=== PATIENT | male | born 1960 | race Caucasian/White ===

== ENCOUNTER 2018-09-30 10:19 | Emergency (ER) | payer BC, OTHER ==
[2018-09-30 10:24] VITALS: BP 159/103
[2018-09-30] MEDS ORDERED: CEPHALEXIN 500 MG CAPSULE PO ONE (10:44)
[2018-09-30] MEDS ORDERED: IBUPROFEN 800 MG TABLET PO ONE (10:46)
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
== END 2018-09-30 11:06 | disposition home or self-care (01) ==
LOC: ER 10:19
DX: S00.262A Insect bite (nonvenomous) of left eyelid and periocular area, initial encounter (principal); L03.213 Periorbital cellulitis; W57.XXXA Bitten or stung by nonvenomous insect and other nonvenomous arthropods, initial encounter; F17.200 Nicotine dependence, unspecified, uncomplicated
CPT/HCPCS: 99283

== ENCOUNTER 2018-10-02 07:11 | Emergency (ER) | payer OTHER ==
[2018-10-02] MEDS ORDERED: IBUPROFEN 800 MG TABLET PO ONE (09:19)
--- NOTE | 2018-10-02 09:23 | ER Document Report ---
ED Medical Screen (RME) - General Chief Complaint: Eye Problem Stated Complaint: RE-VISIT/LEFT EYE PAIN, SWELLING Mode of Arrival: Ambulatory Information source: Patient Notes: This 58-year-old relatively healthy individual returns to the emergency department for left eye irritation. Reports approximately 6 days ago he was bit by something right above his left eyebrow while he was driving a tractor. He came to the ED 2 days ago and was treated with Keflex for some cellulitis around his left eye. Patient reports since then he is not feeling any better, he is feeling really weak chills reports he felt warm the other day but she did not take his temperature. Reports he still has a headache above his left eyebrow. He reports the area where something stung him still stings. He denies problems with his vision. His eye seems a little more swollen with some more redness under his left eye . I have greeted and performed a rapid initial assessment of this patient. A comprehensive ED assessment and evaluation of the patient, analysis of test results and completion of the medical decision making process will be conducted by additional ED providers. Dictation of this chart was performed using voice recognition software; therefore, there may be some unintended grammatical errors. TRAVEL OUTSIDE OF THE [place] IN LAST 30 DAYS: No - Related Data Allergies/Adverse Reactions: No Known Allergies Allergy (Verified 10/02/18 07:12) Past Medical History Endocrine Medical History: Denies: Hx Diabetes Mellitus Type 1, Hx Diabetes Mellitus Type 2 Renal/ Medical History: Denies: Hx Peritoneal Dialysis Psychiatric Medical History: Denies: Hx Depression - Immunizations Hx Diphtheria, Pertussis, Tetanus Vaccination: No Physical Exam - Vital signs Vitals: Temp Pulse Resp BP Pulse Ox 98.2 F 73 20 157/94 H 95 10/02/18 07:15 10/02/18 07:15 10/02/18 07:15 10/02/18 07:15 10/02/18 07:15 Course - Vital Signs Vital signs: Temp Pulse Resp BP Pulse Ox 98.2 F 73 20 157/94 H 95 10/02/18 07:15 10/02/18 07:15 10/02/18 07:15 10/02/18 07:15 10/02/18 07:15
[2018-10-02 09:39] LABS: ABSOLUTE BASOPHILS # (AUTO) 0.1 10^3/uL (0.0-0.2); ABSOLUTE EOSINOPHILS # (AUTO) 0.1 10^3/uL (0.0-0.6); ABSOLUTE LYMPHOCYTES (AUTO) 1.4 10^3/uL (0.5-4.7); ABSOLUTE MONOCYTES (AUTO) 0.8 10^3/uL (0.1-1.4); BASOPHILS % (AUTO) 0.8 % (0-2); EOSINOPHILS % (AUTO) 1.4 % (0-6); HEMATOCRIT 40.4 % (37.9-51.0); HEMOGLOBIN 13.6 g/dL (13.5-17.0); MEAN CORPUSCULAR HEMOGLOBIN 30.2 pg (27.0-33.4); MEAN CORPUSCULAR HGB CONC 33.7 g/dL (32.0-36.0); MEAN CORPUSCULAR VOLUME 90 fl (80-97); MONOCYTES % (AUTO) 10.6 % (3-13); PLATELET COUNT 286 10^3/uL (150-450); SEGMENTED NEUTROPHILS % (AUTO) 68.2 % (42-78); TOTAL CELLS COUNTED % (AUTO) 100 %; WHITE BLOOD COUNT 7.4 10^3/uL (4.0-10.5)
[2018-10-02 09:43] LABS: APPEARANCE,URINE CLEAR; BILIRUBIN,URINE NEGATIVE (NEGATIVE); COLOR,URINE YELLOW; GLUCOSE, URINE NEGATIVE (NEGATIVE); KETONES,URINE 20 mg/dL (NEGATIVE); LEUKOCYTE ESTERASE,URINE NEGATIVE (NEGATIVE); NITRITE,URINE NEGATIVE (NEGATIVE); PROTEIN,URINE NEGATIVE (NEGATIVE); URINE SPECIFIC GRAVITY 1.025; UROBILINOGEN,URINE NEGATIVE mg/dL (<2.0)
[2018-10-02] MEDS ORDERED: DOXYCYCLINE HYCLATE 100 MG TABLET PO ONE (09:54)
[2018-10-02 09:57] LABS: ALBUMIN 4.4 g/dL (3.5-5.0); ALKALINE PHOSPHATASE 59 U/L (38-126); ANION GAP 7 (5-19); ASPARTATE AMINO TRANSFERASE 18 U/L (17-59); BILIRUBIN,DIRECT 0.3 mg/dL (0.0-0.4); BILIRUBIN,TOTAL 0.7 mg/dL (0.2-1.3); BLOOD UREA NITROGEN 19 mg/dL (7-20); CALCIUM 9.7 mg/dL (8.4-10.2); CARBON DIOXIDE 29 mmol/L (22-30); CHLORIDE 102 mmol/L (98-107); GLUCOSE 106 mg/dL (75-110); POTASSIUM 4.5 mmol/L (3.6-5.0); TOTAL PROTEIN 7.2 g/dL (6.3-8.2)
--- NOTE | 2018-10-02 10:11 | ER Document Report ---
ED General - General Chief Complaint: Eye Problem Stated Complaint: RE-VISIT/LEFT EYE PAIN, SWELLING Time Seen by Provider: 10/02/18 09:34 Mode of Arrival: Ambulatory Notes: 58-year-old male presents the emergency department with chief complaint of left eye pain and swelling. He was seen here 2 days ago and prescribed Keflex for probable cellulitis after a bug bite. Patient did not get the Keflex filled and reports worsening swelling and pain right over the area. Patient denies any vision changes, denies red eye, extraocular movements are intact, patient does complain of headache and myalgias that are constant. Patient denies any neck stiffness. Patient has some mild dizziness. Patient denies nausea or vomiting, acute shortness of breath or chest pain. No other complaints TRAVEL OUTSIDE OF THE [place] IN LAST 30 DAYS: No - Related Data Allergies/Adverse Reactions: No Known Allergies Allergy (Verified 10/02/18 07:12) Past Medical History - General Information source: Patient - Social History Smoking Status: Unknown if Ever Smoked Family History: Reviewed & Not Pertinent Patient has suicidal ideation: No Patient has homicidal ideation: No Endocrine Medical History: Denies: Hx Diabetes Mellitus Type 1, Hx Diabetes Mellitus Type 2 Renal/ Medical History: Denies: Hx Peritoneal Dialysis Psychiatric Medical History: Denies: Hx Depression - Immunizations Hx Diphtheria, Pertussis, Tetanus Vaccination: No Review of Systems - Review of Systems Constitutional: See HPI EENT: See HPI Cardiovascular: See HPI Respiratory: See HPI Gastrointestinal: See HPI Genitourinary: No symptoms reported Male Genitourinary: No symptoms reported Musculoskeletal: No symptoms reported Skin: See HPI Hematologic/Lymphatic: No symptoms reported Neurological/Psychological: See HPI Physical Exam - Vital signs Vitals: Temp Pulse Resp BP Pulse Ox 98.2 F 73 20 157/94 H 95 10/02/18 07:15 10/02/18 07:15 10/02/18 07:15 10/02/18 07:15 10/02/18 07:15 - Notes Notes: PHYSICAL EXAMINATION: Reviewed vital signs and charting by RN GENERAL: Alert, interacts well. No acute distress. HEAD: Normocephalic, small scabbed area over the left eye slightly lateral with some small bumps and some mild erythema with periorbital edema, no scleral injection EYES: Pupils equal and round. Extraocular movements intact. ENT: Oral mucosa moist, tongue midline. NECK: Full range of motion. Trachea midline. EXTREMITIES: Moves all 4 extremities spontaneously. No edema, No cyanosis. PSYCH: Normal affect, normal mood. SKIN: Warm, dry, normal turgor. No rashes or lesions noted. Course - Re-evaluation Re-evalutation: 10/02/18 12:58 Overall well-appearing and patient symptoms consistent with cellulitis, I do not suspect an orbital cellulitis as patient does not have significant pain and is able to move his eyeball. Because he is having these nebulous symptoms of headache and body aches and weakness I am going to switch him to doxycycline and I added a Whitt spotted fever titer. I have low suspicion for this as patient did think he was bitten by yellow fly but this will cover for cellulitis as well. Patient understands and is stable for discharge. - Vital Signs Vital signs: Temp Pulse Resp BP Pulse Ox 98.9 F 74 20 153/100 H 99 10/02/18 10:23 10/02/18 10:23 10/02/18 07:15 10/02/18 10:23 10/02/18 10:23 - Laboratory Result Diagrams: 10/02/18 09:22 10/02/18 09:22 Laboratory results interpreted by me: 10/02/18 09:24 Urine Ketones 20 H Discharge - Discharge Clinical Impression: Cellulitis and abscess of face Condition: Good Disposition: HOME, SELF-CARE Additional Instructions: The rash is likely due to infection of your skin called cellulitis. I have switched you from Keflex to a medication called doxycycline you need to take the antibiotics as prescribed. Do not stop even if the rash goes away until you have completed all the antibiotics. You need to return to emergency department if the redness spreads continues to spread on your face after being on antibiotics for a couple of days. You should also return if you develop fevers with temperature greater than 101, Eye entrapment where you are not able to move your eye, severe intractable headache, systemic rash, persistent vomiting, worsening pain, or have any other symptoms that are concerning to you. Prescriptions: Doxycycline Hyclate 100 mg PO BID #14 capsule Forms: Return to Work
[2018-10-02 10:26] VITALS: BP 153/100
== END 2018-10-02 10:26 | disposition home or self-care (01) ==
LOC: ER 07:11
DX: L03.211 Cellulitis of face (principal); L02.01 Cutaneous abscess of face; H57.12 Ocular pain, left eye; M79.89 Other specified soft tissue disorders; R51 Headache; M79.10 Myalgia, unspecified site; R42 Dizziness and giddiness
CPT/HCPCS: 36415; 80053; 81001; 85025; 86757; 99283

== ENCOUNTER → 2019-09-18 | Outpatient (CLI) | payer SELFPAY ==
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
[2019-09-18 10:07] VITALS: BP 140/73
== END ==
LOC: RDC 09:01
PROVIDERS: ATTEND Nurse Practitioner Family
DX: Z20.828 Contact with and (suspected) exposure to other viral communicable diseases (principal); F17.210 Nicotine dependence, cigarettes, uncomplicated
CPT/HCPCS: 87635; C9803; 99201; 99211